=== PATIENT | male | born 1945 | race Hispanic/Latino ===

== ENCOUNTER → 2018-06-25 | Outpatient (CLI) | payer MEDICARE ==
[~2018-06-25] MED LIST: ASPI-1012 PO; ENAL10TA PO; HYDR-4457 PO; METO-391 PO; ROSU20TA30 PO; VITAMIN D PO
== END | disposition home or self-care (01) ==
LOC: RAH 10:59
PROVIDERS: ATTEND Orthopaedic Surgery
DX: S72.111A Displaced fracture of greater trochanter of right femur, initial encounter for closed fracture (principal); X58.XXXA Exposure to other specified factors, initial encounter; Y93.89 Activity, other specified; Y92.89 Other specified places as the place of occurrence of the external cause; Y99.8 Other external cause status
CPT/HCPCS: 73700

== ENCOUNTER → 2019-12-27 | Outpatient (CLI) | payer OTHER, MEDICARE ==
[~2019-12-27] MED LIST changes: -ROSU20TA30 PO; +ROSU20TA31 PO
== END | disposition home or self-care (01) ==
LOC: RAH 10:48
PROVIDERS: ATTEND Orthopaedic Surgery
DX: G83.9 Paralytic syndrome, unspecified (principal); M51.27 Other intervertebral disc displacement, lumbosacral region
CPT/HCPCS: 72148